=== PATIENT | female | born 1945 | race Caucasian/White ===

== ENCOUNTER 2016-12-08 16:02 | Emergency (ER) | payer MEDICARE ==
[~2016-12-08] VITALS: Ht 157.5 cm; Wt 66.0 kg
[2016-12-08 16:09] VITALS: BP 155/80
[2016-12-08] MEDS ORDERED: KETOROLAC 30 MG/1 ML ONE (16:57)
[2016-12-08] MEDS ORDERED: KETOROLAC 30 MG/1 ML IM ONE (17:00)
== END 2016-12-08 17:40 | disposition home or self-care (01) ==
LOC: ED 17:10
DX: S46.012A Strain of muscle(s) and tendon(s) of the rotator cuff of left shoulder, initial encounter (principal); Z85.850 Personal history of malignant neoplasm of thyroid; X50.1XXA Overexertion from prolonged static or awkward postures, initial encounter; Y93.89 Activity, other specified; Y92.009 Unspecified place in unspecified non-institutional (private) residence as the place of occurrence of the external cause; Y99.9 Unspecified external cause status
CPT/HCPCS: 29105; 73030; 93005; 96372; 99284; J1885